=== PATIENT | female | born 1975 | race African-American/Black ===

== ENCOUNTER 2017-09-11 18:27 | Emergency (ER) | payer BC ==
[2017-09-11 18:45] VITALS: BP 114/70; PULSE 79; TEMP 97.9; BMI 17.7
--- NOTE | 2017-09-11 18:48 | PDOC ---
Rapid Medical Evaluation Time Seen by Provider: 09/11/17 18:45 Medical Evaluation: Allergies Allergy/AdvReac Type Severity Reaction Status Date / Time No Known Allergies Allergy Verified 09/11/17 18:41 Vital Signs Temp Pulse Resp BP Pulse Ox 97.9 F 79 18 114/70 100 09/11/17 18:41 09/11/17 18:41 09/11/17 18:41 09/11/17 18:41 09/11/17 18:41 09/11/17 18:45 I have performed a brief in-person evaluation of this patient. The patient presents with a chief complaint of: left 5th digit pain Pertinent physical exam findings: EXT: swelling to cuticle of left foot 5th digit I have ordered the following: n/a The patient will proceed to the ED for further evaluation. Discharge Disposition - Diagnosis Toe pain - Referrals - Patient Instructions - Post Discharge Activity
--- NOTE | 2017-09-11 19:55 | PDOC ---
History of Present Illness - General Chief Complaint: Pain Stated Complaint: FOOT PAIN Time Seen by Provider: 09/11/17 18:45 History Source: Patient Exam Limitations: No Limitations - History of Present Illness Initial Comments: 09/11/17 22:55 Chief complaint: Tenderness between left fourth and fifth toes with swelling of left toe area history of present illness: Patient is a 42-year-old female here today complaining of tenderness between her left fourth and fifth toe with swelling of the proximal aspect of her left toe noted in the last couple of days. Denies any discharge from area. Patient does not dry well between her toes. Patient denies any fever. Patient reports that area is very tender. Timing/Duration: getting worse (for 4 days ) Severity: moderate (tender between left 4th & 5ht toes ) Associated Symptoms: reports: denies symptoms Past History - Past Medical History Allergies/Adverse Reactions: Allergies Allergy/AdvReac Type Severity Reaction Status Date / Time No Known Allergies Allergy Verified 09/11/17 18:41 Home Medications: Ambulatory Orders Cephalexin [Keflex] 500 mg PO Q8H #30 capsule 09/11/17 Mupirocin Ointment [Bactroban] 1 applic TP BID #1 tube 09/11/17 Asthma: No Cancer: No Cardiac Disorders: No COPD: No Diabetes: No HTN: No Seizures: No Thyroid Disease: No - Immunization History Td Vaccination: No Immunization Up to Date: No - Suicide/Smoking/Psychosocial Hx Smoking History: Never smoked Have you smoked in the past 12 months: No Information on smoking cessation initiated: No Hx Alcohol Use: No Drug/Substance Use Hx: No Substance Use Type: None Hx Substance Use Treatment: No Review of Systems - Review of Systems Able to Perform ROS?: Yes Constitutional: No: Symptoms Reported HEENTM: No: Symptoms Reported Respiratory: No: Symptoms reported Cardiac (ROS): No: Symptoms Reported ABD/GI: No: Symptoms Reported : No: Symptoms Reported Musculoskeletal: Yes: Joint Pain (lfet 5th toes proximal aspect ), Joint Swelling Integumentary: Yes: Other (white tissue between left 4th & 5th toes at web with slight swelling at proximal aspect) Neurological: No: Symptoms reported *Physical Exam - Vital Signs Last Vital Signs Temp Pulse Resp BP Pulse Ox 97.9 F 79 18 114/70 100 09/11/17 18:41 09/11/17 18:41 09/11/17 18:41 09/11/17 18:41 09/11/17 18:41 - Physical Exam General Appearance: Yes: Appropriately Dressed Vascular Pulses: Doralis-Pedis (L): 4+ Extremity: positive: Normal Capillary Refill, Normal Range of Motion (left 4th & 5 th toes ), Tender (between proximal left 5th toes and web between left 4th & 5 th toes ). negative: Normal Inspection Integumentary: positive: Other (white tissue noted between left 4th 5th toes at web with no surrounding erythema ) Neurologic: positive: Alert, Normal Response, Respond to painful stimul (left 4th & 5th toes ), Responsive Procedures - Consent Consent obtained: From Patient - Additional Procedures Progress: 09/11/17 20:47 cleansed Fourth and fifth toe web with Betadine and normal saline 0.9%DSD applied Medical Decision Making - Medical Decision Making 09/11/17 22:57 Patient is a 42-year-old female here today complaining of tenderness between her left fourth and fifth toe with swelling of the proximal aspect of her left toe noted in the last couple of days. Denies any discharge from area. Patient does not dry well between her toes. Patient denies any fever. Patient reports that area is very tender. 'skin infection between left 4th and 5th toes PLAN: xray left foot, no fracture noted keflex 500 mg q 8 hr for 10 days bactroban 0.5 % cream bid to area between left 4th & 5th toes follow up with podiatry 09/11/17 22:58 *DC/Admit/Observation/Transfer Diagnosis at time of Disposition: Infection of skin of toes Toe pain Qualifiers: Laterality: left Qualified Code(s): M79.675 - Pain in left toe(s) - Discharge Dispostion Disposition: HOME Condition at time of disposition: Stable - Prescriptions Prescriptions: Cephalexin [Keflex] 500 mg PO Q8H #30 capsule Mupirocin Ointment [Bactroban] 1 applic TP BID #1 tube - Referrals Referrals: Diony Archer [Primary Care Provider] - Román Riddle MD [Staff Physician] - Stacia Villarreal MD [Staff Physician] - - Patient Instructions Additional Instructions: You between left fourth and fifth toes with antibacterial soap and water twice daily dry area very well then apply tiny amount of cream that was ordered today however when out of home with dressing in between toes and air out at night Return to emergency room if any increased swelling or redness of area in between left fourth and fifth toes or any fever 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
[2017-09-11] MEDS ORDERED: IBUPROFEN 600 MG TABLET (FP) PO ONE ×2 (20:50→21:02)
== END 2017-09-11 21:00 | disposition home or self-care (01) ==
LOC: JERFT 18:27
DX: L08.89 Other specified local infections of the skin and subcutaneous tissue (principal)
CPT/HCPCS: 73630-TC-LT; 99281-25

== ENCOUNTER 2022-03-04 07:10 | Emergency (ER) | payer BC ==
[2022-03-04 07:20] VITALS: BMI 21.2
[2022-03-04] MEDS ORDERED: ACETAMINOPHEN 500 MG TABLET (FP) PO ONE (07:38)
[2022-03-04] MEDS ORDERED: SODIUM CHLORIDE 1,000 ML IV STA (07:43)
[2022-03-04 08:51] LABS: BASO % 0.6 % (0-2.0); EOS % 0.3 % (0-4.5); HEMATOCRIT 43.1 % (32.4-45.2); HEMOGLOBIN 14.6 GM/dL (10.7-15.3); LYMPH % 13.5 % (8-40); MCH 31.4 pg (25.7-33.7); MCHC 33.8 g/dl (32.0-36.0); MEAN CELL VOLUME 92.8 fl (80-96); MEAN PLT VOLUME 8.8 fl (7.5-11.1); MONO % 14.7 % (3.8-10.2); NEUT % 70.9 % (42.8-82.8); PLATELET COUNT 162 10^3/uL (134-434); RBC 4.64 M/mm3 (3.60-5.2); RDW 12.8 % (11.6-15.6); WHITE BLOOD COUNT 3.5 K/mm3 (4.0-10.0)
[2022-03-04 09:01] VITALS: BP 104/66; PULSE 97; TEMP 99.9
[2022-03-04 09:05] LABS: ALBUMIN 3.8 g/dl (3.4-5.0); BLOOD UREA NITROGEN 8.6 mg/dL (7-18)
[2022-03-04 09:08] LABS: CREATININE 0.9 mg/dL (0.55-1.3)
[2022-03-04 09:10] LABS: BILIRUBIN,TOTAL 0.7 mg/dL (0.2-1); TOT PROT 8.1 g/dl (6.4-8.2)
== END 2022-03-04 11:30 | disposition home or self-care (01) ==
LOC: JER 07:10
DX: U07.1 COVID-19 (principal); R50.9 Fever, unspecified; R51.9 Headache, unspecified
CPT/HCPCS: 36415; 71046-TC-FY; 80053; 85025; 93005; 93010; 99285-25; C9803-CS; U0003; U0005